=== PATIENT | female | born 1960 | race Caucasian/White ===

== ENCOUNTER → 2019-10-13 | Outpatient (CLI) | payer BC ==
[2019-10-14 12:41] LABS: Angiotensin-1 Converting Enz. 29 U/L (8-52)
[2019-10-14 13:34] LABS: C-ANCA <1:20 Titer (<1:20)
== END | disposition home or self-care (01) ==
LOC: LABWHC1 11:05
PROVIDERS: ATTEND Psychiatry & Neurology Neurology
DX: R20.0 Anesthesia of skin (principal); R94.6 Abnormal results of thyroid function studies
CPT/HCPCS: 36415; 82164; 85652; 86038; 86255

== ENCOUNTER → 2019-11-25 | Outpatient (CLI) | payer BC ==
[2019-11-25 19:29] LABS: Hemoglobin A1C 5.5 % (4.0-6.0)
== END | disposition home or self-care (01) ==
LOC: LABWHC1 15:10
PROVIDERS: ATTEND Psychiatry & Neurology Neurology
DX: R20.0 Anesthesia of skin (principal); R94.8 Abnormal results of function studies of other organs and systems
CPT/HCPCS: 36415; 83036

== ENCOUNTER → 2020-06-19 | Outpatient (CLI) | payer BC ==
[2020-06-19 19:52] LABS: Basophils # (A) 0.02 X 10*3/uL (0.00-0.10); Basophils % (A) 0.4 %; Eosinophils # (A) 0.11 X 10*3/uL (0.04-0.35); Eosinophils % (A) 2.4 %; HCT 40.6 % (37.2-46.3); HGB 12.9 g/dL (12.0-15.0); MCH 28.8 pg (27.0-32.0); MCHC 31.8 g/dL (32.0-37.0); MCV 90.6 fL (80.0-97.0); Mean Platelet Volume 10.1 fL (9.5-12.2); Monocytes # (A) 0.33 X 10*3/uL (0.20-1.00); Monocytes % (A) 7.1 %; Neutrophils # (A) 2.79 X 10*3/uL (1.80-7.70); Neutrophils % (A) 59.7 %; Platelet Count 200 X 10*3/uL (140-440); RBC 4.48 X 10*6/uL (4.10-5.20); RDW 15.4 % (11.5-14.5); WBC 4.67 X 10*3/uL (4.50-10.00)
[2020-06-21 11:59] LABS: Immunoglobulin A 96.1 mg/dL (60.0-350.0)
== END | disposition home or self-care (01) ==
LOC: LABWHC1 11:01
PROVIDERS: ATTEND Nurse Practitioner Gerontology
DX: C82.08 Follicular lymphoma grade I, lymph nodes of multiple sites (principal)
CPT/HCPCS: 36415; 82784; 85025

== ENCOUNTER → 2020-07-25 | Outpatient (CLI) | payer BC ==
--- NOTE | 2020-07-25 09:28 | CT ---
EXAMINATION TYPE: CT heart w calcium score DATE OF EXAM: 07/25/2020 COMPARISON: None. HISTORY: Screening for cardiovascular disorder. 213.9; vitamin D deficiency. CT DLP: 67.20 mGycm Automated exposure control for dose reduction was used. CT CALCIUM SCORING Coronary calcium is a marker for plaque (fatty deposits) in a blood vessel or atherosclerosis (harden ing of the arteries). The presence and amount of calcium detected in a coronary artery by the CT sca n, indicates the presence and amount of atherosclerotic plaque. These calcium deposits appear years before the development of heart disease symptoms such as chest pain and shortness of breath. A calcium score is computed for each of the coronary arteries based upon the volume and density of th e calcium deposits. This can be referred to as your calcified plaque burden. It does not correspond directly to the percentage of narrowing in the artery but does correlate with the severity of the un derlying coronary atherosclerosis. PROCEDURE TECHNIQUE - Prospective Gating was used. Slice thickness: 3mm. Density threshold (HU): 130, Pixel threshold: 3, Algorithm: discrete. RESULTS Region: LM Calcium Score ([place]): 0 Volume (mm3): 0 Mass (g): 0 Region: RCA Calcium Score ([place]): 0 Volume (mm3): 0 Mass (g): 0 Region: LAD Calcium Score ([place]): 0 Volume (mm3): 0 Mass (g): 0 Region: CX Calcium Score ([place]): 0 Volume (mm3): 0 Mass (g): 0 Region: PDA Calcium Score ([place]): 0 Volume (mm3): 0 Mass (g): 0 Total: Calcium Score ([place]): 0 Volume (mm3): 0 Mass (g): 0 Calcified right hilar lymph nodes or granulomas incidentally noted. IMPRESSION: Calcium Score: 0 Implication: No identifiable plaque. Risk of Coronary Artery Disease: Very low, generally less than 5%. CALCIUM SCORE IMPLICATION RISK OF C ORONARY ARTERY DISEASE 0 No identifiable plaque Very low, generally less than 5% 1-10 Minimal identifiable plaque Very unlikely, less than 10% 11-100 Definite, at least mild atherosclerotic plaque Mild or m inimal coronary narrowings likely 101-400 Definite, at least moderate atherosclerotic plaque Mild coronary ar amy disease highly likely, significant narrowing possible 401 or Higher Extensive atherosclerotic plaque High lik elihood of at least one significant coronary narrowing
== END | disposition home or self-care (01) ==
LOC: RADCTMAIN 08:40
PROVIDERS: ATTEND Family Medicine
DX: I25.10 Atherosclerotic heart disease of native coronary artery without angina pectoris (principal)
CPT/HCPCS: 75571

== ENCOUNTER → 2021-12-10 | Outpatient (CLI) | payer BC ==
--- NOTE | 2021-12-10 17:12 | XR ---
EXAMINATION TYPE: XR chest 2V DATE OF EXAM: 12/10/2021 COMPARISON: None HISTORY: 61-year-old female [id number], cough TECHNIQUE: Frontal and lateral views FINDINGS: The cardiomediastinal silhouette, aorta, and pulmonary vasculature are within normal limits. Strandy atelectasis in the lower lungs. Otherwise, lungs and pleural spaces are clear. IMPRESSION: No acute cardiopulmonary process.
== END | disposition home or self-care (01) ==
LOC: RADXRYALE 13:28
PROVIDERS: ATTEND Internal Medicine
DX: R05.9 Cough, unspecified (principal)
CPT/HCPCS: 71046

== ENCOUNTER 2023-08-04 10:53 | Emergency (ER) | payer BC ==
[2023-08-04] MEDS: Acetaminophen-Codeine 300-30mg TAB PO STA (12:02)
[2023-08-04] MEDS: KETOROLAC 15 MG/ML 1 ML VIAL IM STA (12:03)
[2023-08-04 12:44] VITALS: RESP 18
--- NOTE | 2023-08-04 12:48 | XR ---
EXAMINATION TYPE: XR knee complete 3 views RT, XR tibia fibula 2 views RT DATE OF EXAM: 08/04/2023 COMPARISON: NONE HISTORY: 63-year-old female pain after fall FINDINGS: Right knee: No knee joint effusion. Mild anterior soft tissue swelling. Extensor mechanism appears intact. No acu te fracture, subluxation, dislocation. Right tibia/fibula: Spurring at the tibial tuberosity suggesting chronic insertional patellar tendinopathy. No acute frac ture. No periostitis or osteolysis. IMPRESSION: 1. Right knee: No acute osseous abnormality seen. 2. Right tibia/fibula: No acute osseous abnormality seen.
--- NOTE | 2023-08-04 13:32 | ED ---
Lower Extremity Injury HPI - General Chief Complaint: Extremity Injury, Lower Stated Complaint: Fall/R Knee Pain Time Seen by Provider: 08/04/23 11:27 Source: patient, family, RN notes reviewed Mode of arrival: wheelchair Limitations: no limitations - History of Present Illness Initial Comments: This is a 63-year-old female who presents to the emergency department for right knee pain. States that she has been dealing with right knee pain and swelling for the last several days. She has been alternating with ibuprofen and Tylenol without much relief. This morning, as result of the pain she fell in the shower and further injured her right knee. She has since been unable to bear weight or ambulate. Denies hitting her head or sustaining any additional injuries. MD Complaint: knee injury - Related Data Home Medications Medication Instructions Recorded Confirmed Acetaminophen [Tylenol] 325 mg PO Q4-6H PRN 08/07/15 08/08/15 Ibuprofen [Motrin] 800 mg PO DAILY PRN 08/07/15 08/08/15 Levothyroxine Sodium [Levoxyl] 88 mcg PO QAM 08/07/15 08/08/15 Previous Rx's Medication Instructions Recorded Diclofenac Sodium [Voltaren] 75 mg PO BID PRN #30 tab 08/04/23 HYDROcodone/APAP 5-325MG [[place] 1 tab PO Q6HR PRN 3 Days #12 tab 08/04/23 5-325] methocarbamoL [Robaxin-750] 1,500 mg PO TID PRN #30 tab 08/04/23 Allergies Allergy/AdvReac Type Severity Reaction Status Date / Time bee venom protein (honey bee) Allergy Rash/Hives Verified 08/04/23 11:27 gabapentin Allergy Rash/Hives Verified 08/04/23 11:26 Review of Systems ROS Statement: Those systems with pertinent positive or pertinent negative responses have been documented in the HPI. ROS Other: All systems not noted in ROS Statement are negative. Past Medical History Past Medical History: Thyroid Disorder Additional Past Medical History / Comment(s): NON-HODGKINS LEUKEMIA (DIAG, 2013, IN REMISSION). CHEMO LAST AUGUST. History of Any Multi-Drug Resistant Organisms: None Reported Past Surgical History: Breast Surgery Additional Past Surgical History / Comment(s): LEFT STEREOTACTIC BREAST BX IN June, (NEG). LYMPH NODE BX IN 2013 Additional Past Anesthesia/Blood Transfusion Reaction / Comment(s): HEADACHE. Past Psychological History: No Psychological Hx Reported Past Alcohol Use History: None Reported Past Drug Use History: None Reported General Exam Limitations: no limitations General appearance: alert, in no apparent distress Head exam: Present: atraumatic, normocephalic, normal inspection Respiratory exam: Present: normal lung sounds bilaterally. Absent: respiratory distress, wheezes, rales, rhonchi, stridor Cardiovascular Exam: Present: regular rate, normal rhythm, normal heart sounds. Absent: systolic murmur, diastolic murmur, rubs, gallop, clicks Extremities exam: Present: other (Tenderness and swelling over the right knee. Range of motion limited by pain. 2+ DP and PT pulses.) Neurological exam: Present: alert, oriented X3, CN II-XII intact Psychiatric exam: Present: normal affect, normal mood Skin exam: Present: warm, dry, intact, normal color. Absent: rash Course Vital Signs 08/04/23 08/04/23 08/04/23 11:24 12:39 15:24 Temperature 99.2 F 98.2 F Pulse Rate 76 72 76 Respiratory 20 18 18 Rate Blood Pressure 132/84 156/83 145/76 O2 Sat by Pulse 97 99 96 Oximetry Medical Decision Making - Medical Decision Making This is a 63-year-old female who presents to the emergency department for right knee pain. Was pt. sent in by a medical professional or institution? @ -No Did you speak to anyone other than the patient for history? @ -No Did you review nursing and triage notes? @ -Yes, and I agree, it is accurate with regards to the patient's symptoms. Were old charts reviewed? @ -No Differential Diagnosis? @ -Differential Musculoskeletal: Muscular strain, contusion, ligament sprain, fracture, arthritis, septic arthritis, bursitis, cellulitis, muscle spasm, nerve compression, DVT, arterial occlusion, herpes zoster, electrolyte abnormality, tumor.... This is not meant to be in all inclusive list EKG interpreted by me (3pts min.)? @ -Not obtained X-rays interpreted by me (1pt min.)? @ -X-ray of the right knee and tib-fib obtained. My interpretation identifies no acute fractures. CT interpreted by me (1pt min.)? @ -CT scan of the right knee obtained. My interpretation identifies no acute fractures. U/S interpreted by me (1pt. min.)? @ -Not obtained What testing was considered but not performed? (CT, X-rays, U/S, labs)? Why? @ -None What meds were considered but not given? Why? @ -None Did you discuss the management of the patient with other professionals? @ -No Did you reconcile home meds? @ -No Was smoking cessation discussed for >3mins.? @ -No Was critical care preformed (if so, how long)? @ -No Were there social determinants of health that impacted care today? How? (Homelessness, low income, unemployed, alcoholism, drug addiction, transportation, low edu. Level, literacy, decrease access to med. care, fdc, rehab)? @ -No Was there de-escalation of care discussed even if they declined? (Discuss DNR or withdrawal of care, Hospice)? @ -No What co-morbidities impacted this encounter? (DM, HTN, Smoking, COPD, CAD, Cancer, CVA, Hep., AIDS, mental health diagnosis, sleep apnea, morbid obesity)? @ -None Was patient admitted / discharged? @ -Discharged. X-ray of the right knee and tib-fib obtained demonstrating no acute irregularities aside from soft tissue swelling. She was given pain medication and a knee immobilizer, but was still unable to put pressure on the leg. We subsequently obtained a CT scan of the knee for further evaluation. This demonstrated increased edema in the region of the ACL concerning for underlying ACL rupture. There is also a small suprapatellar joint effusion. They advised an MRI of the knee for further evaluation. Findings reviewed with the patient. She was given crutches and sent home with the knee immobilizer. Prescription for diclofenac, [place], and Robaxin provided with dosing instructions reviewed. She was also given information for orthopedic follow-up, and I advised contacting them for a follow-up appointment. Undiagnosed new problem with uncertain prognosis? @ -None Drug Therapy requiring intensive monitoring for toxicity (Heparin, Nitro, Insulin, Cardizem)? @ -None Were any procedures done? @ -None Diagnosis/symptom? @ -ACL rupture right knee Acute, or Chronic, or Acute on Chronic? @ -Acute Uncomplicated (without systemic symptoms) or Complicated (systemic symptoms)? @ -Uncomplicated Side effects of treatment? @ -None Exacerbation, Progression, or Severe Exacerbation] @ -Not applicable Poses a threat to life or bodily function? @ -This is impacting her ability to ambulate. Return precautions reviewed in depth, the patient is instructed to return to the emergency department with any new, worsening, or concerning symptoms. Patient verbalized understanding. This case was discussed in detail with the attending ED physician, Dr. Ruby. Presentation, findings, and treatment plan discussed in detail as well. - Radiology Data Radiology results: report reviewed, image reviewed Disposition Clinical Impression: Rupture of anterior cruciate ligament of right knee Disposition: HOME SELF-CARE Instructions (If sedation given, give patient instructions): ACL Injury (ED), Knee Immobilizer (ED) Additional Instructions: Return to the emergency department with any new, worsening, or concerning symptoms. Take the diclofenac twice daily for pain relief. Do not take any other anti-inflammatories such as ibuprofen with this, take one or the other. Take this with Tylenol as well. Take the [place] sparingly when your pain is the most severe and be aware that it may make you drowsy. You can take the Robaxin as 1 to 2 tablets up to 3-4 times daily, this also has the potential to make you drowsy. Contact orthopedics as listed below for a follow-up appointment. Let them know that you were seen in the emergency department and had a CT scan suspecting an ACL rupture of the right knee. Use the knee immobilizer and crutches as needed. You can also use a knee brace of your choice. Follow up with your primary care provider in 1-2 days. Prescriptions: HYDROcodone/APAP 5-325MG [[place] 5-325] 1 tab PO Q6HR PRN 3 Days #12 tab PRN Reason: Pain methocarbamoL [Robaxin-750] 1,500 mg PO TID PRN #30 tab PRN Reason: Pain Diclofenac Sodium [Voltaren] 75 mg PO BID PRN #30 tab PRN Reason: Pain Is patient prescribed a controlled substance at d/c from ED?: Yes When asked, does pt state using other controlled substances?: No If prescribed controlled substance>3 days was MAPS reviewed?: Prescribed <3 Days Referrals: Ewa Riggins MD [Primary Care Provider] - 1-2 days Wan Galindo MD [STAFF PHYSICIAN] - 1-2 days Time of Disposition: 15:16
[2023-08-04] MEDS: LORazepam 1 MG TAB PO STA (14:15)
[2023-08-04] MEDS: MORPHINE SULFATE 2 MG/ML SYRINGE IM STA (14:15)
--- NOTE | 2023-08-04 15:00 | CT ---
EXAMINATION TYPE: CT knee RT wo con DATE OF EXAM: 08/04/2023 COMPARISON: None HISTORY: RT Knee pain after knee giving out in shower CT DLP: 135.1 mGycm Automated exposure control for dose reduction was used. Unenhanced CT of the right knee was performed with axial, coronal and sagittal images submitted. FINDINGS: No displaced fracture or dislocation is seen. There is increased edema in the region of the ACL. I sales spect underlying ACL rupture. MRI correlation is recommended. Small suprapatellar joint effusion seen . Suspect popliteal cyst adjacent to the fibula IMPRESSION: CORRELATE FOR ACL RUPTURE. MRI OF THE KNEE IS RECOMMENDED. NO ACUTE DISPLACED FRACTURE OR DISLOCATION .
[2023-08-04 15:49] VITALS: BP 145/76; PULSE 76; TEMP 98.2
== END 2023-08-04 15:40 | disposition home or self-care (01) ==
LOC: EC 10:53
DX: S83.511A Sprain of anterior cruciate ligament of right knee, initial encounter (principal); Z88.8 Allergy status to other drugs, medicaments and biological substances; Z91.030 Bee allergy status; W18.2XXA Fall in (into) shower or empty bathtub, initial encounter
CPT/HCPCS: 73590; 73562; 73700; 99284; 96372 ×2; J2270; J1885

== ENCOUNTER → 2023-09-18 | Outpatient (CLI) | payer BC ==
--- NOTE | 2023-09-21 17:43 | MM ---
Reason for Exam: Screening (asymptomatic). Last mammogram was performed 8 year(s) and 4 month(s) ago. Patient History: Menarche at age 12. First Full-Term at age 25. Hysterectomy at age 47. Postmenopausal. Other cancer, age 53. 2016, Stereotactic Core Biopsy on the Left side. Sister had breast cancer, age 48. Risk Values: Laurel 5 year model risk: 3.6%. NCI Lifetime model risk: 14.9%. Prior Study Comparison: 09/16/2013 Screening Mammogram, [facility]. 04/26/2015 Bilateral Screening Mammogram, [facility]. 05/05/2015 Left Diagnostic Mammogram, [facility]. Tissue Density: There are scattered areas of fibroglandular density. Findings: Analyzed By CAD. Chronic nodularity posterior upper quadrant left breast. Microclip lateral left breast from prior biopsy. There is no suspicious group of microcalcifications or new suspicious mass in either breast. Overall Assessment: Benign, BI-RAD 2 Management: Screening Mammogram of both breasts in 1 year. See note below in regards to the patient's increased 5 year Laurel score. Patient should continue monthly self-breast exams. A clinical breast exam by your physician is recommended on an annual basis. This exam should not preclude additional follow-up of suspicious palpable abnormalities. Note on Laurel scores and lifetime risk: 1. A Laurel score greater than 3% is considered moderate risk. If this is the case, consider specialist referral to assess eligibility for a risk reducing agent. 2. If overall lifetime risk for the development of breast cancer is 20% or higher, the patient may qualify for future screening with alternating mammogram and breast MRI. Electronically signed and approved by: Johan Driver M.D. Radiologist
== END | disposition home or self-care (01) ==
LOC: RADMAMWWP 10:16
PROVIDERS: ATTEND Internal Medicine
DX: Z12.31 Encounter for screening mammogram for malignant neoplasm of breast (principal); Z78.0 Asymptomatic menopausal state; Z80.3 Family history of malignant neoplasm of breast
CPT/HCPCS: 77063; 77067